=== PATIENT | male | born 1980 | race Caucasian/White ===

== ENCOUNTER 2017-02-21 17:19 | Emergency (ER) | payer OTHER | END 2017-02-21 19:25 | disposition home or self-care (01) | LOC: ER 17:19 | DX: L02.13 Carbuncle of neck (principal); I10 Essential (primary) hypertension | CPT/HCPCS: 87070; 87186; 99070; 99283-25 ==

== ENCOUNTER 2017-02-22 12:42 | Emergency (ER) | payer OTHER | END 2017-02-22 13:56 | disposition home or self-care (01) | LOC: ER 12:42 | DX: L02.11 Cutaneous abscess of neck (principal); I10 Essential (primary) hypertension; F17.210 Nicotine dependence, cigarettes, uncomplicated; Z79.899 Other long term (current) drug therapy; Z79.891 Long term (current) use of opiate analgesic | CPT/HCPCS: 96372; 99070; 99282-25 ==